=== PATIENT | male | born 1990 | race Caucasian/White ===

== ENCOUNTER → 2020-12-17 08:20 | Outpatient (BNVA) | payer BC, SELFPAY | PROVIDERS: Family Provider Internal Medicine; Referring Provider Nurse Practitioner Family; Visit Provider Specialist | DX: G56.01 Carpal tunnel syndrome, right upper limb (principal) | CPT/HCPCS: 73110 ==

== ENCOUNTER 2020-12-28 07:20 | Outpatient (RCR) | payer BC, SELFPAY | END 2021-01-20 23:59 | disposition home or self-care (01) | LOC: SOT 07:20 | PROVIDERS: PCP Nurse Practitioner Family; Referring Provider Specialist; Visit Provider Specialist | DX: M65.4 Radial styloid tenosynovitis [de Quervain] (principal) | CPT/HCPCS: 97035; 97110; 97140; 97165 ==

== ENCOUNTER 2023-03-22 03:37 | Emergency (ER) | payer SELFPAY ==
[2023-03-22 03:38] VITALS: BP 116/94; PULSE 68; RESP 28; TEMP 36.9; O2SAT 95; BMI 37.2
--- NOTE | 2023-03-22 03:44 | XRR_ITS ---
PROCEDURE INFORMATION: Exam: XR Chest Exam date and time: 03/22/2023 3:52 AM Age: 32 years old Clinical indication: Angina and dyspnea; Angina pectoris; Patient HX: PT states he had chest pain that woke him up out of a sleep, anterior pain as well as base of shoulder blades, SOB, sweating, vomitting; Additional info: Cp TECHNIQUE: Imaging protocol: Radiologic exam of the chest. Views: 1 view. COMPARISON: CT chest wo con [id number] 07/05/2019 8:20 AM FINDINGS: Tubes, catheters and devices: EKG monitoring leads overlie the thoracic wall. Lungs: Confluent linear opacities at the left lung base. Pleural spaces: No pleural effusion or pneumothorax. Heart/Mediastinum: Normal in size. Bones/joints: No acute fracture is identified. XR/XR chest 1V portable [id number] IMPRESSION: Confluent linear opacities at the lung base. This may represent atelectasis or in the appropriate clinical setting, pneumonia.
--- NOTE | 2023-03-22 03:44 | ECG_ITS ---
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 Measurements Intervals [place] Rate: 74 P: 35 CO: 156 QRS: -17 QRSD: 126 T: 11 QT: 374 QTc: 416 Interpretive Statements SINUS RHYTHM MODERATE INTRAVENTRICULAR CONDUCTION DELAY [110+ ms QRS DURATION] No previous ECG available for comparison Electronically Signed On 03-22-2023 8:41:52 CDT by Reshma Romero M.D. [id number]
--- NOTE | 2023-03-22 03:44 | W.ED.CHESTPA ---
Documented by User: Emilia Fitch MD 03/22/23 03:56 HPI - Chest Pain General: Chief Complaint: Chest Pain Stated Complaint: CHEST PAIN Time Seen by Provider: 03/22/23 03:43 Source: patient and EMS Mode of arrival: EMS Limitations: no limitations History of Present Illness: 32-year-old male states he woke up roughly 2 AM he states he had a fullness feeling in his abdomen and upper chest and felt like his chest was going to pop. He states it was a sharp pressure type pain he had some radiation to his back states he had this once before after eating a greasy meal but did not last long and was not this severe. He states that once EMS arrived his pain a drop toe for flank did give him aspirin nitro he is currently pain-free states he did vomit once and felt nauseous he denies any shortness of breath currently he denies being a smoker no history of hypertension high cholesterol or diabetes. Associated symptoms: Reports abdominal pain, nausea and vomiting; Deny dyspnea or fever(s) Review of Systems Const: Denies: fever(s) or chills ENMT: Denies: throat pain or dental pain Card: Reports: chest pain Resp: Denies: dyspnea GI: Reports: abdominal pain, nausea and vomiting; Denies: diarrhea : Denies: dysuria Musc: Denies: neck pain or back pain Skin/Breast: Denies: rash Neuro: Denies: headache(s) PFSH ED PFSH: Social History Smoking and tobacco status: never smoked Alcohol intake: never Substance/Drug Use: never Physical Exam Const: COMMON NORMALS: no acute distress, patient oriented x3 and healthy appearing HENMT: COMMON NORMALS: normocephalic and atraumatic HEAD & SCALP: normocephalic and atraumatic Eye: COMMON NORMALS: Equal, round and reactive pupils present and EOMs intact bilaterally PUPIL: Yes Equal, round and reactive pupils present Neck/C-Spine: COMMON NORMALS: full ROM and supple Chest: COMMONS NORMALS: normal inspection of the chest and normal palpation of entire chest wall Resp: COMMON NORMALS: normal respiratory effort, No retractions, No use of accessory muscles and clear to auscultation bilaterally AUSCULTATION: clear to auscultation bilaterally Cardio: COMMON NORMALS: regular rate, regular rhythm and No murmurs present (Cardio) RATE: regular rate RHYTHM: regular rhythm GI: COMMON NORMALS: Normal to inspection, nondistended, normoactive bowel sounds present, Soft to palpation, non-tender and no masses PALPATION: Yes Soft to palpation Extremity: COMMON NORMALS: normal to inspection and full ROM Neuro: COMMON NORMALS: patient oriented x3, moves all extremities and no focal motor deficits Psych: COMMON NORMALS: mental status grossly normal, Normal thought process present and cooperative THOUGHT PROCESS: Normal thought process present Skin: COMMON NORMALS: no rashes or lesions noted and no wounds GENERAL SKIN EXAM: no rashes or lesions noted Course Vital Signs: Vital signs: Vital Signs Temperature 98.5 F 03/22/23 03:38 Pulse Rate 70 03/22/23 07:09 Respiratory Rate 18 03/22/23 07:09 Blood Pressure 156/97 03/22/23 07:09 Pulse Oximetry 96 03/22/23 07:09 Oxygen Delivery Me thod Room Air 03/22/23 06:19 MDM - Chest Pain Medical Records I reviewed the patient's medical records. Lab Data I reviewed the patient's lab results. 03/22/23 03:40 03/22/23 03:40 Radiology Impressions Chest X-Ray 03/22/23 03:44 IMPRESSION: Confluent linear opacities at the lung base. This may represent atelectasis or in the appropriate clinical setting, pneumonia. Laboratory Results WBC 9.88 10^3/uL (3.29-11.43) 03/22/23 03:40 RBC 5.20 10^6/uL (3.85-5.65) 03/22/23 03:40 Hgb 15.00 g/dL (11.27-16.99) 03/22/23 03:40 Hct 43.4 % (37-53) 03/22/23 03:40 MCV 83.5 fl (82-101) 03/22/23 03:40 MCH 28.8 pg (27-33) 03/22/23 03:40 MCHC 34.6 g/dL (30-55) 03/22/23 03:40 RDW 12.8 % (12.1-15.1) 03/22/23 03:40 Plt Count 260 10^3/cmm (157-399) 03/22/23 03:40 MPV 10.4 fL (7.4-10.4) 03/22/23 03:40 Neut % (Auto) 62.7 % 03/22/23 03:40 Lymph % (Auto) 24.9 % 03/22/23 03:40 [place] % (Auto) 7.6 % 03/22/23 03:40 Eos % (Auto) 3.1 % 03/22/23 03:40 Baso % (Auto) 0.7 % 03/22/23 03:40 Neut # (Auto) 6.19 10^3/uL (1.8-7.7) 03/22/23 03:40 Lymph # (Auto) 2.5 10^3/uL (0.8-4.8) 03/22/23 03:40 [place] # (Auto) 0.8 10^3/uL (0.2-0.9) 03/22/23 03:40 Eos # (Auto) 0.3 10^3/uL (0.0-0.8) 03/22/23 03:40 Baso # (Auto) 0.1 10^3/uL (0.0-0.1) 03/22/23 03:40 Nucleated RBC % (auto) 0 % 03/22/23 03:40 Nucleated RBCs # 0.0 /100WBC 03/22/23 03:40 Sodium 142 mmol/L (136-145) 03/22/23 03:40 Potassium 3.5 mmol/L (3.5-5.1) 03/22/23 03:40 Chloride 105 mmol/L (98-107) 03/22/23 03:40 Carbon Dioxide 26 mmol/L (22-29) 03/22/23 03:40 Anion Gap 14.5 (5-19) 03/22/23 03:40 BUN 12 mg/dL (6-20) 03/22/23 03:40 Creatinine 0.8 mg/dL (0.7-1.2) 03/22/23 03:40 GFR Calculation 112.8 mL/min (90-130) 03/22/23 03:40 Glucose 140 mg/dL (65-115) H 03/22/23 03:40 Calculated Osmolality 296 mOsm/kg (285-295) H 03/22/23 03:40 Calcium 8.9 mg/dL (8.5-10.5) 03/22/23 03:40 Total Bilirubin 0.3 mg/dL (0.15-1.2) 03/22/23 03:40 AST 29 U/L (0-40) 03/22/23 03:40 ALT 33 U/L (0-41) 03/22/23 03:40 Alkaline Phosphatase 87 U/L (40-130) 03/22/23 03:40 Troponin T Baseline 6 ng/L (0-15) 03/22/23 03:40 Troponin T 120 Minute 6 ng/L (0-15) 03/22/23 05:35 Delta Troponin T 0 ABS# (0-10) 03/22/23 05:35 Total Protein 6.5 g/dL (6.6-8.7) L 03/22/23 03:40 Albumin 4.3 g/dL (3.5-5.2) 03/22/23 03:40 Globulin 2.2 g/dL (1.3-4.6) 03/22/23 03:40 Lipase 28 U/L (13-60) 03/22/23 03:40 EKG Data EKG 1: I personally reviewed and interpreted this EKG as follows: EKG interpretation date: 03/22/23 EKG interpretation time: 03:38 Interpretation: nsr hr [address] or t wave abnormalities qrs 126 qtc 401 Discharge Plan Discharge Patient Disposition: Home Clinical Impression: Atypical chest pain Condition: Stable Prescriptions: New aspirin 81 mg tablet,delayed release (DR/EC) 81 mg PO DAILY Qty: 30 0RF omeprazole 40 mg capsule,delayed release(DR/EC) 40 mg PO DAILY 84 Days Qty: 60 0RF Discharge Orders: Discharge ED (Routine); Ordered 03/22/23 Ordered By: Angelo To Referrals: Esme Mejia FNP [Primary Care Provider] - 1-3 days Discharge Diet: Advance as tolerated Discharge Activity: Resume usual activity Patient Instructions: Chest Pain (ED) Activity Restrictions/Additional Instructions: Case management will make arrangements for you to have a follow-up exercise stress test. Sign Out Sign Out Data: Patient Sign Out occurred on 03/22/23 at 05:48. Patient's care was discussed, and care was transferred from to Angelo To DO. Coding Level of Care Code ED [address] Vendor for [employer]g Fwd Documented by User: Angelo To DO 03/22/23 08:56 HPI - Chest Pain General: Chief Complaint: Chest Pain Stated Complaint: CHEST PAIN Time Seen by Provider: 03/22/23 03:43 PFSH ED PFSH: Social History Smoking and tobacco status: never smoked Alcohol intake: never Substance/Drug Use: never Course Vital Signs: Vital signs: Vital Signs Temperature 98.5 F 03/22/23 03:38 Pulse Rate 70 03/22/23 07:09 Respiratory Rate 18 03/22/23 07:09 Blood Pressure 156/97 03/22/23 07:09 Pulse Oximetry 96 03/22/23 07:09 Oxygen Delivery Me thod Room Air 03/22/23 06:19 MDM - Chest Pain Medical Decision Making Care assumed at change of shift. Cardiac enzymes negative. He is on the monitor he is being monitored on lead I on the monitor and the T waves are being interpreted by the computer algorithm as QRSs so his heart rate is double on the monitor what it actually physically is verified by physical exam and pulse ox which show exactly half of what the rhythm monitor is reading when the lead is switched the rate reverts to normal and is concurrent with a pulse ox reading and physical exam finding. Patient no longer having any symptoms. His is very concerned about his symptoms. We went through the types of chest pain that can result in critical diagnoses he has no findings suggestive of pulmonary emboli pneumonia pneumothorax dissecting aneurysm or acute OK. They are also concerned about the possibility of acute cholecystitis. His liver enzymes and white count are normal his exam is not suggestive of acute cholecystitis. Patient may be having biliary colic suspect that is something GI related. We will start him on aspirin daily as well as omeprazole 40 mg daily set him up for outpatient stress testing. Medical Records I reviewed the patient's medical records. Lab Data I reviewed the patient's lab results. 03/22/23 03:40 03/22/23 03:40 Radiology Impressions Chest X-Ray 03/22/23 03:44 IMPRESSION: Confluent linear opacities at the lung base. This may represent atelectasis or in the appropriate clinical setting, pneumonia. Laboratory Results WBC 9.88 10^3/uL (3.29-11.43) 03/22/23 03:40 RBC 5.20 10^6/uL (3.85-5.65) 03/22/23 03:40 Hgb 15.00 g/dL (11.27-16.99) 03/22/23 03:40 Hct 43.4 % (37-53) 03/22/23 03:40 MCV 83.5 fl (82-101) 03/22/23 03:40 MCH 28.8 pg (27-33) 03/22/23 03:40 MCHC 34.6 g/dL (30-55) 03/22/23 03:40 RDW 12.8 % (12.1-15.1) 03/22/23 03:40 Plt Count 260 10^3/cmm (157-399) 03/22/23 03:40 MPV 10.4 fL (7.4-10.4) 03/22/23 03:40 Neut % (Auto) 62.7 % 03/22/23 03:40 Lymph % (Auto) 24.9 % 03/22/23 03:40 [place] % (Auto) 7.6 % 03/22/23 03:40 Eos % (Auto) 3.1 % 03/22/23 03:40 Baso % (Auto) 0.7 % 03/22/23 03:40 Neut # (Auto) 6.19 10^3/uL (1.8-7.7) 03/22/23 03:40 Lymph # (Auto) 2.5 10^3/uL (0.8-4.8) 03/22/23 03:40 [place] # (Auto) 0.8 10^3/uL (0.2-0.9) 03/22/23 03:40 Eos # (Auto) 0.3 10^3/uL (0.0-0.8) 03/22/23 03:40 Baso # (Auto) 0.1 10^3/uL (0.0-0.1) 03/22/23 03:40 Nucleated RBC % (auto) 0 % 03/22/23 03:40 Nucleated RBCs # 0.0 /100WBC 03/22/23 03:40 Sodium 142 mmol/L (136-145) 03/22/23 03:40 Potassium 3.5 mmol/L (3.5-5.1) 03/22/23 03:40 Chloride 105 mmol/L (98-107) 03/22/23 03:40 Carbon Dioxide 26 mmol/L (22-29) 03/22/23 03:40 Anion Gap 14.5 (5-19) 03/22/23 03:40 BUN 12 mg/dL (6-20) 03/22/23 03:40 Creatinine 0.8 mg/dL (0.7-1.2) 03/22/23 03:40 GFR Calculation 112.8 mL/min (90-130) 03/22/23 03:40 Glucose 140 mg/dL (65-115) H 03/22/23 03:40 Calculated Osmolality 296 mOsm/kg (285-295) H 03/22/23 03:40 Calcium 8.9 mg/dL (8.5-10.5) 03/22/23 03:40 Total Bilirubin 0.3 mg/dL (0.15-1.2) 03/22/23 03:40 AST 29 U/L (0-40) 03/22/23 03:40 ALT 33 U/L (0-41) 03/22/23 03:40 Alkaline Phosphatase 87 U/L (40-130) 03/22/23 03:40 Troponin T Baseline 6 ng/L (0-15) 03/22/23 03:40 Troponin T 120 Minute 6 ng/L (0-15) 03/22/23 05:35 Delta Troponin T 0 ABS# (0-10) 03/22/23 05:35 Total Protein 6.5 g/dL (6.6-8.7) L 03/22/23 03:40 Albumin 4.3 g/dL (3.5-5.2) 03/22/23 03:40 Globulin 2.2 g/dL (1.3-4.6) 03/22/23 03:40 Lipase 28 U/L (13-60) 03/22/23 03:40 Discharge Plan Discharge Patient Disposition: Home Clinical Impression: Atypical chest pain Condition: Stable Prescriptions: New aspirin 81 mg tablet,delayed release (DR/EC) 81 mg PO DAILY Qty: 30 0RF omeprazole 40 mg capsule,delayed release(DR/EC) 40 mg PO DAILY 84 Days Qty: 60 0RF Discharge Orders: Discharge ED (Routine); Ordered 03/22/23 Ordered By: Angelo To Referrals: Esme Mejia FNP [Primary Care Provider] - 1-3 days Discharge Diet: Advance as tolerated Discharge Activity: Resume usual activity Patient Instructions: Chest Pain (ED) Activity Restrictions/Additional Instructions: Case management will make arrangements for you to have a follow-up exercise stress test. Sign Out Sign Out Data: Patient Sign Out occurred on 03/22/23 at 05:48. Patient's care was discussed, and care was transferred from to Angelo To DO. Coding Level of Care Code ED [address] Vendor for Yulisa Galvan
[2023-03-22 03:46] VITALS: BP 116/94; PULSE 78; RESP 84; O2SAT 96
[2023-03-22 03:51] LABS: Basophils # 0.1 10^3/uL (0.0-0.1); Basophils % 0.7 %; Eosinophils # 0.3 10^3/uL (0.0-0.8); Eosinophils % 3.1 %; Hematocrit 43.4 % (37-53); Lymphocytes # 2.5 10^3/uL (0.8-4.8); Lymphocytes % 24.9 %; Mean Corpuscular HGB Conc 34.6 g/dL (30-55); Mean Corpuscular Hemoglobin 28.8 pg (27-33); Mean Corpuscular Volume 83.5 fl (82-101); Mean Platelet Volume 10.4 fL (7.4-10.4); Monocytes # 0.8 10^3/uL (0.2-0.9); Monocytes % 7.6 %; Neutrophils # 6.19 10^3/uL (1.8-7.7); Neutrophils % 62.7 %; Nucleated Red Blood Cells % 0 %; Platelet Count 260 10^3/cmm (157-399); Red Cell Distribution Width 12.8 % (12.1-15.1); White Blood Count 9.88 10^3/uL (3.29-11.43)
[2023-03-22 04:06] VITALS: BP 116/94; PULSE 88; RESP 25; O2SAT 94
[2023-03-22 04:14] LABS: Troponin(5th) Baseline 6 ng/L (0-15)
[2023-03-22 04:17] LABS: Alanine Aminotransferase 33 U/L (0-41); Albumin Level 4.3 g/dL (3.5-5.2); Alkaline Phosphatase 87 U/L (40-130); Aspartate Amino Transferase 29 U/L (0-40); Blood Urea Nitrogen 12 mg/dL (6-20); Calcium 8.9 mg/dL (8.5-10.5); Carbon Dioxide 26 mmol/L (22-29); Chloride 105 mmol/L (98-107); Globulin 2.2 g/dL (1.3-4.6); Glomerular Filtration Rate 112.8 mL/min (90-130); Glucose 140 mg/dL (65-115); Lipase 28 U/L (13-60); Osmolality Calculated 296 mOsm/kg (285-295); Sodium 142 mmol/L (136-145); Total Bilirubin 0.3 mg/dL (0.15-1.2); Total Protein 6.5 g/dL (6.6-8.7)
[2023-03-22 04:22] LABS: Anion Gap 14.5 (5-19); Potassium 3.5 mmol/L (3.5-5.1)
--- NOTE | 2023-03-22 05:30 | ECG_ITS ---
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 Measurements Intervals [place] Rate: 66 P: 40 [place]: 164 QRS: -19 QRSD: 125 T: 11 QT: 395 QTc: 417 Interpretive Statements SINUS RHYTHM MODERATE INTRAVENTRICULAR CONDUCTION DELAY [110+ ms QRS DURATION] ST ELEVATION CONSISTENT WITH INJURY, PERICARDITIS, OR EARLY REPOLARIZATION [ST ELEVATION W/O NORMALLY INFLECTED T-WAVE] Compared to ECG 03/22/2023 03:38:42 ST (T wave) deviation now present Early repolarization now present Electronically Signed On 03-22-2023 8:43:42 CDT by Reshma Romero M.D. [email or web address] [facility] [id number]
[2023-03-22 05:40] VITALS: BP 134/79; PULSE 62; RESP 14; O2SAT 99
[2023-03-22 06:08] LABS: Troponin 5 2HR 6 ng/L (0-15); Troponin 5 2HR Delta 0 ABS# (0-10)
[2023-03-22 06:19] VITALS: BP 134/79; PULSE 70; RESP 22; O2SAT 94
--- NOTE | 2023-03-22 06:41 | ECG_ITS ---
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 Measurements Intervals [place] Rate: 61 P: 26 [place]: 159 QRS: -16 QRSD: 121 T: 13 QT: 400 QTc: 405 Interpretive Statements SINUS RHYTHM MODERATE INTRAVENTRICULAR CONDUCTION DELAY [110+ ms QRS DURATION] NONSPECIFIC ST ELEVATION [0.05+ mV ST ELEVATION] Compared to ECG 03/22/2023 05:30:46 Early repolarization no longer present ST (T wave) deviation still present Electronically Signed On 03-22-2023 8:42:21 CDT by Reshma Romero M.D. [email or web address].[place] [facility]/store/OM/[id number]
[2023-03-22 07:09] VITALS: BP 156/97; PULSE 70; RESP 18; O2SAT 96
--- NOTE | 2023-03-22 09:47 | DCPLANNER ---
wind power project manager had message to schedule an outpatient stress test for patient. wind power project manager faxed signed order to centralized scheduling, who will call patient with appointment information.
== END 2023-03-22 07:10 | disposition home or self-care (01) ==
PROVIDERS: Emergency Medicine; Emergency Provider Family Medicine; PCP Nurse Practitioner Family
DX: R07.89 Other chest pain (principal)
CPT/HCPCS: 71045; 80053; 83690; 84484; 85025; 93005; 99285

== ENCOUNTER 2024-07-12 13:11 | Outpatient (CLI) | payer BC, MEDICAID, SELFPAY ==
--- NOTE | 2024-07-12 13:21 | XRR_ITS ---
PROCEDURE INFORMATION: Exam: XR Chest Exam date and time: 07/12/2024 1:34 PM Age: 33 years old Clinical indication: Patient HX: Cough since April, coughing up brown phlegm, tightness in chest at breastbone level; Additional info: Bronchitis TECHNIQUE: Imaging protocol: Radiologic exam of the chest. Views: 2 views. COMPARISON: CR (CHEST, ) 03/22/2023 3:52 AM FINDINGS: Lungs: Unremarkable. No consolidation. Pleural spaces: Unremarkable. No pleural effusion. No pneumothorax. Heart/Mediastinum: Unremarkable. No cardiomegaly. Bones/joints: Unremarkable. XR/XR chest 2V* [id number] IMPRESSION: No acute findings.
== END 2024-07-12 13:12 | disposition home or self-care (01) ==
LOC: RAD 13:17
PROVIDERS: PCP Nurse Practitioner Family; Visit Provider Nurse Practitioner Family
DX: J40 Bronchitis, not specified as acute or chronic (principal)
CPT/HCPCS: 71046